=== PATIENT | female | born 1975 | race Two or more races ===

== ENCOUNTER 2020-09-22 07:51 | Day surgery (SDC) | payer OTHER ==
[~2020-09-22 07:51] MED LIST: CLONAZEPAM1 MG PO; LOSARTAN-HCTZ1 EAC1 PO; SINGULAIR10 MG PO
[2020-09-22] MEDS ORDERED: MOTRIN IB200 M1 PO (13:24)
== END 2020-09-22 18:00 | disposition home or self-care (01) ==
LOC: CIR.AMB 07:51
PROVIDERS: ATTEND Obstetrics & Gynecology
DX: D06.7 Carcinoma in situ of other parts of cervix (principal); Z20.822 Contact with and (suspected) exposure to COVID-19

== ENCOUNTER 2022-10-04 11:29 | Outpatient (CLI) | payer OTHER ==
[~2022-10-04 11:29] MED LIST changes: +MOTRIN IB200 M1 PO
== END 2022-10-04 12:01 | disposition home or self-care (01) ==
LOC: MAMO-SONO 11:29
PROVIDERS: ATTEND Surgery
DX: D24.1 Benign neoplasm of right breast (principal)